=== PATIENT | male | born 1995 | race Caucasian/White ===

== ENCOUNTER 2022-07-09 13:15 | Emergency (ER) | payer OTHER ==
[~2022-07-09] VITALS: Ht 167.6 cm; Wt 77.1 kg
[2022-07-09 13:20] VITALS: BP 134/79
--- NOTE | 2022-07-09 13:24 | NUR ---
PT AMB TO BED 2.
--- NOTE | 2022-07-09 13:44 | NUR ---
27yo male pt c/o pressured/aching 8/10 L ear pain x5days. reports suddden onset but states going to concert and being near speaker . states decrease in hearing and occasional "buzzing". "I can hear crickets". no visible injury . denies n/v/d , chest pain, fever or chils. pt aaox4, no visible distress. respirations even and unlabored HX: DENIES NKA
[2022-07-09] MEDS ORDERED: CIPR7.5S OT (13:52)
[2022-07-09] MEDS ORDERED: IBUP-2213 PO (13:52)
[2022-07-09] MEDS ORDERED: IBUPROFEN 600 MG TAB PO ONE (14:00)
--- NOTE | 2022-07-09 14:10 | NUR ---
Patient discharged with v/s stable. Written and verbal after care instructions FOR [facility] given and explained. Patient alert, oriented and verbalized understanding of instructions. Ambulatory with steady gait. All questions addressed prior to discharge. ID band removed. Patient advised to follow up with PMD. Rx of IBUPROFEN AND CIPRODEX OTIC JOSE MARIA given. Opportunity to ask questions provided and answered.
--- NOTE | 2022-07-09 14:22 | NUR ---
The patient's care was reviewed and supervised by ED Agency Nurse 9, RN, RN.
== END 2022-07-09 14:10 | disposition home or self-care (01) ==
LOC: MED 13:15
DX: H60.502 Unspecified acute noninfective otitis externa, left ear (principal); Z79.899 Other long term (current) drug therapy
CPT/HCPCS: 99283